=== PATIENT | female | born 1965 | race Two or more races ===

== ENCOUNTER 2025-01-19 14:26 | Inpatient (IN) | payer OTHER ==
[2025-01-19] MEDS ORDERED: diazePAM CARPU-JECT 10 MG/2 ML DISP.SYRIN ONE (15:51)
[2025-01-19] MEDS ORDERED: CALCIUM GLUC IN NACL, ISO-OSM 1 GM/50 ML BAG IVPB ONE (15:51)
[2025-01-19] MEDS: diazePAM CARPU-JECT 10 MG/2 ML DISP.SYRIN IVPUSH ONE (15:52)
[2025-01-19] MEDS ORDERED: CALCIUM GLUCONATE 10% - 1,000 MG/10 ML VIAL ONE (16:07)
[2025-01-19] MEDS: CALCIUM GLUCONATE 10% - 1,000 MG/10 ML VIAL IVPB ONE (16:18)
[2025-01-19 16:41] LABS: ABSOLUTE IMMATURE GRANULOCYTES 0.05 x10^3/uL (0.0-0.031); BASOPHILS # 0.06 x10^3/uL (0.01-0.08); EOSINOPHIL % 0.0 % (0.7-5.8); EOSINOPHILS # 0.00 x10^3/uL (0.04-0.36); MCHC 31.0 g/dl (32.2-35.5); MEAN CELL VOLUME 90.3 fl (79.4-94.8); MEAN PLT VOLUME 9.8 fl (9.4-12.3); MONOCYTE # 0.26 x10^3/uL (0.24-0.86); MONOCYTE % 2.4 % (4.7-12.5); RDW 14.9 % (12.4-16.4)
[2025-01-19] MEDS: LACTATED RINGERS SOLUTION 1000 ML INFUS.BAG IV ONE (17:02)
[2025-01-19 17:12] LABS: GLUCOSE,RANDOM 103 mg/dL (74-106)
[2025-01-19 17:13] LABS: TOT PROT 9.5 g/dl (6.4-8.2)
[2025-01-19 17:14] LABS: CO2 29 mmol/L (21-32)
[2025-01-19 17:15] LABS: ALK PHOS 156 U/L (40-150)
[2025-01-19 17:18] LABS: CREATININE 0.62 mg/dL (0.55-1.3); SGOT/AST 58 U/L (5-34); SGPT/ALT 14 U/L (0-55)
[2025-01-19 17:41] LABS: HCV DIAGNOSTIC IN-HOUSE W/RFLX NON-REACTIVE (NONREACTIVE); HIV INTERPRETATION NEGATIVE (NEGATIVE)
[2025-01-19] MEDS ORDERED: ONDANSETRON 4 MG/2 ML VIAL ONE (18:03)
[2025-01-19] MEDS: ONDANSETRON 4 MG/2 ML VIAL IVPB ONE (18:05)
[2025-01-19 18:33] LABS: GLUCOSE,RANDOM 93.0 mg/dL (74-106)
[2025-01-19 18:38] LABS: CREATININE 0.68 mg/dL (0.55-1.3)
[2025-01-19] MEDS ORDERED: ACETAMINOPHEN INJECTION 100 ML ONE (18:38)
[2025-01-19] MEDS: ACETAMINOPHEN 1000 MG/100 ML BAG IVPB ONE (18:38)
[2025-01-19 18:58] LABS: CO2 30.0 mmol/L (21-32)
[2025-01-19] MEDS ORDERED: dilTIAZem HCL 125 MG/25 ML - 25 ML VIAL ONE (19:25)
[2025-01-19] MEDS: dilTIAZem HCL 50 MG/10 ML - 10 ML VIAL IVPUSH ONE (19:29)
[2025-01-19] MEDS ORDERED: METOCLOPRAMIDE HCL INJECTION 10 MG/2 ML VIAL ONE (22:54)
[2025-01-19] MEDS: METOCLOPRAMIDE HCL INJECTION 10 MG/2 ML VIAL IVPUSH ONE (23:02)
[2025-01-20 00:16] LABS: EPI CELLS 7 /uL (0-25.1); HYALINE CASTS 0 /uL (0-3.1); URINE APPEARANCE CLEAR; URINE BACTERIA 275 /uL (0-1359); URINE BILIRUBIN NEGATIVE (NEGATIVE); URINE COLOR YELLOW; URINE GLUCOSE (UA) TRACE (NEGATIVE); URINE KETONE TRACE (NEGATIVE); URINE LEUK ESTERASE NEGATIVE (NEGATIVE); URINE NITRITE NEGATIVE (NEGATIVE); URINE PROTEIN 1+ (NEGATIVE); URINE RBC 14 /uL (0-23.9); URINE UROBILINOGEN 0.2 mg/dL (0.2-1.0); URINE WBC 3 /uL (0-25.8)
[2025-01-20] MEDS ORDERED: METOCLOPRAMIDE HCL INJECTION 10 MG/2 ML VIAL IVPUSH PRN (02:09)
[2025-01-20] MEDS ORDERED: TRIMETHOBENZAMIDE HCL 200MG/2ML INJ IM PRN (02:44)
[2025-01-20] MEDS ORDERED: ACETAMINOPHEN 1000 MG/100 ML BAG IVPB PRN (03:53)
[2025-01-20] MEDS: SODIUM CHLORIDE 1,000 ML IV SCH (04:09)
[2025-01-20 06:51] LABS: ARTERIAL BLD GAS O2 SATURATION 98.1 % (95-98); ARTERIAL BLOOD GAS BASE EXCESS 3.8 mmol/L (-2-2); ARTERIAL BLOOD GAS PCO2 32.30 mmHg (35-45); ARTERIAL BLOOD GAS PO2 99.6 mmHg (80-100); BG HCT 45.0 % (32.4-45.2); O2 CONTENT 2.10 % vol
[2025-01-20 06:54] LABS: MCHC 31.3 g/dl (32.2-35.5); MEAN CELL VOLUME 88.0 fl (79.4-94.8); MEAN PLT VOLUME 10.2 fl (9.4-12.3); RDW 14.9 % (12.4-16.4)
[2025-01-20 06:56] LABS: GLUCOSE,RANDOM 106.0 mg/dL (74-106); TOT PROT 8.0 g/dl (6.4-8.2)
[2025-01-20 06:57] LABS: CO2 26.0 mmol/L (21-32)
[2025-01-20 06:59] LABS: ALK PHOS 165.0 U/L (40-150)
[2025-01-20 07:02] LABS: CREATININE 0.64 mg/dL (0.55-1.3); SGOT/AST 16.0 U/L (5-34); SGPT/ALT 11.0 U/L (0-55)
[2025-01-20] MEDS: ACAMPROSATE CALCIUM 333 MG TABLET.DR PO SCH (09:00)
[2025-01-20] MEDS: FOLIC ACID INJECTION - 1 MG, THIAMINE HCL 100 MG, MULTIVIT INJECTION ADULT 10 ML in SOD... IVPB ONE (09:46)
[2025-01-20] MEDS: MUPIROCIN 2% TOPICAL OINTMENT 22 GM TUBE TP SCH (09:49)
[2025-01-20] MEDS: NICOTINE 14 MG/24 HOURS TOPICAL PATCH TD SCH (09:51)
[2025-01-20] MEDS: THIAMINE 100 MG TABLET PO SCH ×2 (10:25→21:55)
[2025-01-20] MEDS: FOLIC ACID 1 MG TABLET (FP) PO SCH (10:25)
[2025-01-20] MEDS: CEFTRIAXONE 1 GM in DEXTROSE 5%-WATER - 50 ML IVPB SCH (13:58)
[2025-01-20] MEDS: PIPERACILLIN/TAZOB 3.375 GM 3.375 GM in DEXTROSE 5%-WATER - 50 ML IVPB SCH (15:15)
[2025-01-20] MEDS ORDERED: PIPERACILLIN/TAZOB 3.375 GM 3.375 GM in DEXTROSE 5%-WATER - 50 ML IVPB SCH (18:00)
[2025-01-21 07:11] LABS: ABSOLUTE IMMATURE GRANULOCYTES 0.03 x10^3/uL (0.0-0.031); BASOPHILS # 0.07 x10^3/uL (0.01-0.08); EOSINOPHIL % 0.5 % (0.7-5.8); EOSINOPHILS # 0.05 x10^3/uL (0.04-0.36); MCHC 31.9 g/dl (32.2-35.5); MEAN CELL VOLUME 88.0 fl (79.4-94.8); MEAN PLT VOLUME 9.8 fl (9.4-12.3); MONOCYTE # 0.72 x10^3/uL (0.24-0.86); MONOCYTE % 7.5 % (4.7-12.5); RDW 15.4 % (12.4-16.4)
[2025-01-21 07:34] LABS: TOT PROT 6.9 g/dl (6.4-8.2)
[2025-01-21 07:35] LABS: CO2 25.0 mmol/L (21-32)
[2025-01-21 07:37] LABS: ALK PHOS 134.0 U/L (40-150)
[2025-01-21 07:38] LABS: GLUCOSE,RANDOM 97.0 mg/dL (74-106)
[2025-01-21 07:39] LABS: CREATININE 0.97 mg/dL (0.55-1.3); SGOT/AST 13.0 U/L (5-34); SGPT/ALT 12.0 U/L (0-55)
[2025-01-21] MEDS: ENOXAPARIN NA (PORCINE) 40 MG/0.4 ML DISP.SYRIN SQ SCH (09:35)
[2025-01-21] MEDS ORDERED: ASPIRIN COATED 81 MG TABLET.EC PO SCH (17:45)
[2025-01-21] MEDS: ATORVASTATIN CA 40 MG TABLET (FP) PO ONE (18:08)
[2025-01-21] MEDS: LACTATED RINGERS SOLUTION 1000 ML INFUS.BAG IV ONE (18:08)
[2025-01-21] MEDS: FAMOTIDINE 20 MG/50 ML IVPB 20 MG/50 ML MG IVPB ONE (18:08)
[2025-01-21] MEDS: ASPIRIN 81 MG CHEWABLE TABLETS PO ONE (18:08)
[2025-01-21] MEDS: AMOX TR/POT CLAV 500MG/125MG TABLETS (FP) PO SCH (18:48)
[2025-01-21] MEDS: LACTATED RINGERS SOLUTION 1,000 ML/1,000 ML INFUS.BAG IV STA (20:02)
[2025-01-21] MEDS: MIDODRINE HCL 5 MG TABLET PO ONE (20:27)
[2025-01-21] MEDS: THIAMINE 100 MG TABLET PO SCH (21:48)
[2025-01-21] MEDS: MUPIROCIN 2% TOPICAL OINTMENT 22 GM TUBE TP SCH (22:14)
[2025-01-21] MEDS: LORazepam 2 MG/ML SDV VIAL IVPUSH PRN (22:36)
[2025-01-21] MEDS: TRIMETHOBENZAMIDE HCL 200MG/2ML INJ IM ONE (22:52)
[2025-01-22] MEDS: LORazepam 2 MG/ML SDV VIAL IVPUSH ONE (02:43)
[2025-01-22] MEDS: ONDANSETRON 4 MG/2 ML VIAL IVPUSH ONE (02:43)
[2025-01-22 08:08] LABS: MCHC 30.7 g/dl (32.2-35.5); MEAN CELL VOLUME 91.5 fl (79.4-94.8); MEAN PLT VOLUME 10.1 fl (9.4-12.3); RDW 15.5 % (12.4-16.4)
[2025-01-22 08:59] LABS: GLUCOSE,RANDOM 84.0 mg/dL (74-106)
[2025-01-22 09:00] LABS: TOT PROT 6.5 g/dl (6.4-8.2)
[2025-01-22 09:01] LABS: CO2 25.0 mmol/L (21-32)
[2025-01-22 09:02] LABS: ALK PHOS 122.0 U/L (40-150)
[2025-01-22 09:05] LABS: CREATININE 0.89 mg/dL (0.55-1.3); SGOT/AST 18.0 U/L (5-34); SGPT/ALT 12.0 U/L (0-55)
[2025-01-22 09:21] LABS: LDL CHOLESTEROL (ONLY SJRH) 85 mg/dL (5-100)
[2025-01-22] MEDS: ENOXAPARIN NA (PORCINE) 40 MG/0.4 ML DISP.SYRIN SQ SCH (09:32)
[2025-01-22] MEDS: NICOTINE 14 MG/24 HOURS TOPICAL PATCH TD SCH (09:33)
[2025-01-22] MEDS: FOLIC ACID 1 MG TABLET (FP) PO SCH (09:33)
[2025-01-22] MEDS: ACETAMINOPHEN 325 MG TABLET (FP) PO PRN (15:13)
[2025-01-22] MEDS: SODIUM CHLORIDE 1,000 ML IV SCH (18:57)
[2025-01-22] MEDS ORDERED: MIDODRINE HCL 5 MG TABLET PO ONE (20:10)
[2025-01-22 23:59] VITALS: BMI 15.7
[2025-01-23] MEDS: KETOROLAC TROMETHAMINE 30 MG/1 ML VIAL IVPUSH ONE (05:13)
[2025-01-23] MEDS: FUROSEMIDE 40 MG/4 ML INJECTABLE VIAL IVPUSH ONE (05:13)
[2025-01-23] MEDS: MIDODRINE HCL 5 MG TABLET PO ONE (05:14)
[2025-01-23] MEDS: MIDODRINE HCL 5 MG TABLET PO SCH (10:03)
[2025-01-23 10:35] LABS: ABSOLUTE IMMATURE GRANULOCYTES 0.03 x10^3/uL (0.0-0.031); BASOPHILS # 0.07 x10^3/uL (0.01-0.08); EOSINOPHIL % 4.3 % (0.7-5.8); EOSINOPHILS # 0.31 x10^3/uL (0.04-0.36); MCHC 29.9 g/dl (32.2-35.5); MEAN CELL VOLUME 93.6 fl (79.4-94.8); MEAN PLT VOLUME 10.2 fl (9.4-12.3); MONOCYTE # 0.58 x10^3/uL (0.24-0.86); MONOCYTE % 8.0 % (4.7-12.5); RDW 15.5 % (12.4-16.4)
[2025-01-23 11:29] LABS: GLUCOSE,RANDOM 98.0 mg/dL (74-106); TOT PROT 5.8 g/dl (6.4-8.2)
[2025-01-23 11:30] LABS: CO2 29.0 mmol/L (21-32)
[2025-01-23 11:31] LABS: ALK PHOS 112.0 U/L (40-150)
[2025-01-23 11:34] LABS: SGOT/AST 14.0 U/L (5-34); SGPT/ALT 12.0 U/L (0-55)
[2025-01-23 11:35] LABS: CREATININE 0.97 mg/dL (0.55-1.3)
[2025-01-23] MEDS: TRIMETHOBENZAMIDE HCL 200MG/2ML INJ IM PRN (21:29)
[2025-01-24 09:27] LABS: MCHC 30.6 g/dl (32.2-35.5); MEAN CELL VOLUME 93.1 fl (79.4-94.8); MEAN PLT VOLUME 10.2 fl (9.4-12.3); RDW 15.4 % (12.4-16.4)
[2025-01-24 09:54] LABS: GLUCOSE,RANDOM 76.0 mg/dL (74-106); TOT PROT 6.3 g/dl (6.4-8.2)
[2025-01-24 09:55] LABS: CO2 27.0 mmol/L (21-32)
[2025-01-24 09:57] LABS: ALK PHOS 106.0 U/L (40-150)
[2025-01-24 09:59] LABS: SGOT/AST 27.0 U/L (5-34); SGPT/ALT 16.0 U/L (0-55)
[2025-01-24 10:00] LABS: CREATININE 0.75 mg/dL (0.55-1.3)
[2025-01-24 19:49] VITALS: RESP 18
[2025-01-24] MEDS: LIDOCAINE 5% TOPICAL PATCH TP SCH (20:36)
[2025-01-25] MEDS ORDERED: IBUPROFEN 400 MG TABLET (FP) PO PRN (09:00)
[2025-01-25] MEDS ORDERED: NAPROXEN 500 MG TABLET PO SCH (10:00)
[2025-01-25] MEDS: NAPROXEN 500 MG TABLET PO SCH (10:30)
[2025-01-25] MEDS: LIDOCAINE PATCH REMOVAL MC SCH (10:31)
[2025-01-25] MEDS: COSYNTROPIN 0.25 MG VIAL IVPUSH ONE (18:52)
[2025-01-26 10:24] LABS: MCHC 30.7 g/dl (32.2-35.5); MEAN CELL VOLUME 91.6 fl (79.4-94.8); MEAN PLT VOLUME 10.3 fl (9.4-12.3); RDW 15.2 % (12.4-16.4)
[2025-01-26 11:02] LABS: GLUCOSE,RANDOM 96.0 mg/dL (74-106)
[2025-01-26 11:04] LABS: CO2 31.0 mmol/L (21-32)
[2025-01-26 11:08] LABS: CREATININE 0.76 mg/dL (0.55-1.3)
[2025-01-26 12:18] VITALS: BP 97/65; PULSE 60; TEMP 98.2
== END 2025-01-26 16:00 | disposition other institution (70) | DRG 773 ==
LOC: JER 14:26 → JERBED 19:04 → OBSVTOIN 01-20 02:10 → J4W 01-20 06:02 → J6S 01-21 16:53
PROVIDERS: ADMIT Hospitalist; ATTEND Internal Medicine
DX: F11.23 Opioid dependence with withdrawal (principal); E46 Unspecified protein-calorie malnutrition; E27.40 Unspecified adrenocortical insufficiency; L97.929 Non-pressure chronic ulcer of unspecified part of left lower leg with unspecified severity; I10 Essential (primary) hypertension; F10.239 Alcohol dependence with withdrawal, unspecified; F31.9 Bipolar disorder, unspecified; M87.9 Osteonecrosis, unspecified; F17.210 Nicotine dependence, cigarettes, uncomplicated; Z68.1 Body mass index [BMI] 19.9 or less, adult
CPT/HCPCS: 36415; 36600; 71045-TC-FY; 71250-TC; 73502-TC-RT-FY; 74177-TC; 80048; 80053; 80061; 81003; 82024; 82533; 82803; 82962; 83690; 83735; 84100; 84484; 85025; 85027; 86803; 87040; 87086; 87389; 93005; 93010; 93306-TC; 93926-TC; 97116-GP; 97161-GP; 99285-25; G0378; J0834; Q9967